=== PATIENT | male | born 1995 | race Caucasian/White ===

== ENCOUNTER 2020-10-21 11:27 | Emergency (ER) | payer OTHER | END 2020-10-21 13:26 | disposition home or self-care (01) | LOC: JVIRT 11:27 | DX: U07.1 COVID-19 (principal) | CPT/HCPCS: C9803; G2012-GT; U0003 ==

== ENCOUNTER 2021-10-16 00:19 | Emergency (ER) | payer OTHER ==
[2021-10-16 00:28] VITALS: BP 136/83; PULSE 90; TEMP 98.8; BMI 29.6
[2021-10-16] MEDS ORDERED: KETOROLAC TROMETHAMINE 60 MG/2 ML VIAL IM ONE (01:01)
[2021-10-16] MEDS ORDERED: KETOROLAC TROMETHAMINE 60 MG/2 ML VIAL ONE (01:02)
== END 2021-10-16 01:08 | disposition home or self-care (01) ==
LOC: FER 00:19
PROC: 3E0233Z Introduction of Anti-inflammatory into Muscle, Percutaneous Approach (ICD-10-PCS; principal; 2021-10-16)
DX: I49.3 Ventricular premature depolarization (principal)
CPT/HCPCS: 71045-TC-FY; 93005; 99284-25